=== PATIENT | male | born 1995 ===

== ENCOUNTER 2022-11-26 09:07 | Outpatient (AMB) | payer OTHER, SELFPAY ==
--- NOTE | 2022-11-26 09:34 | AM.OFFWIN_ITS ---
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 Patient Tobacco Use Status: Former Tobacco user Allergies No Known Allergies Allergy (Verified 11/26/22 09:37) Do you need a note to return to daycare/school/sports/work: No HPI HPI Comments History of Present Illness Details 1003 27 year old male presents w/ right wrist pain X 1 month s/p punching a punching a punching bag at [employer]. Pain worse w/ range of motion better at rest. States he wanted to come in because he wanted to get checked out prior to having a fit test for the [employer]. No numbness, or tingling, or arm clumsiness. Denies fevers and chills. Physical exam with full range of motion to bilateral wrists, fingers, no step- offs or deformities. 2+ radial pulses equal bilateral. No wrist drop. Capillary refill less than 2 seconds equal bilateral. Normal sensation distally History and physical exam concerning for possible sprain or strain versus ligament or tendon injury, unlikely acute in nature however. No signs of fracture, dislocation, neurovascular compromise or threat to limb there differentials include inflammatory arthritis Plan prednisone, naproxen. Advised him to follow up with the orthopedic team. Educated patient on diagnosis and treatment plan, answered all question, patient verbalizes understanding. At this time patient will be discharged home, advised to return with new or worsening symptoms. Educated on worrisome signs and symptoms and when to return. At this time I feel comfortable discharge home. [facility] Social History Patient Tobacco Use Status: Former Tobacco user Review of Systems Const Details: Constitutional : No Weight loss, No Fever, No Chills, No Fatigue, No Malaise ENT/Mouth : No sore throat, No Rhinorrhea Eyes: No Eye Pain, No Swelling, No Redness Cardiovascular : No Chest Pain, No SOB, No Dyspnea on Exertion, No Orthopnea, No Edema, No Palpitations Respiratory : No Cough, No Sputum, No Wheezing Gastrointestinal : No Nausea, No Vomiting, No Diarrhea, No Constipation, No abdominal Pain, No Hematochezia, No Melena Genitourinary : No Dysuria, No Urinary Frequency, No Hematuria, Musculoskeletal : + joint pain, No Myalgias, + Joint Swelling Skin : No Skin Lesions, No rash Neuro : No Weakness, No Numbness, No Dizziness, No Headache Psych : No Anxiety/Panic, No Depression All other systems reviewed and are negative All systems reviewed & are unremarkable except as noted in HPI and below Physical Exam Vital Signs: Last Vital Signs Temp 97.8 F 11/26/22 09:36 Pulse 82 11/26/22 09:36 BP 124/80 11/26/22 09:36 Pulse Ox 98 11/26/22 09:36 Oxygen Delivery Method Room Air 11/26/22 09:36 BMI result Body Mass Index 41.7 Vital signs stable Appearance: Alert.? Oriented X3.? No acute distress.? Head: Normocephalic, atraumatic, no step-offs or deformities Eyes: Pupils equal, round and reactive to light.? CVS: Normal heart rate and rhythm.? Pulses normal.? Respiratory: No respiratory distress.? Breath sounds normal.? Abdomen: Soft and nontender.? Skin: Skin warm and dry.? Normal skin color.? Normal skin turgor.? Extremities: No lower extremity edema.? No calf ttp. 5/5 strength to bilateral upper and lower extremities + full range of motion to bilateral wrists ( slight discomfort w/ flexion of r. wist), fingers, no step-offs or deformities. 2+ radial pulses equal bilateral. No wrist drop. Capillary refill less than 2 seconds equal bilateral. Normal sensation distally Neuro: Oriented X 3.? No motor deficit.? No sensory deficit. CN 2-12 intact Assessment & Plan Assessment & Plan (1) Wrist pain, right: Code(s): M25.531 - Pain in right wrist Plan Take your medications as prescribed. If you were prescribed antibiotics today, it is important that you take your medication to their entirety, do not skip any doses, do not finish them early. Follow-up with your primary care provider this week. Return to the emergency department with new or worsening symptoms. Such as fevers, chills, chest pain, shortness of breath, nausea, vomiting, dizziness, headache, vision changes, lethargy In case of emergency call 911 Orders: Orders XR wrist RT 2V Today M25.531 - Pain in right wrist Referrals Orthopedics Referral M25.539 - Pain in unspecified wrist Medications: New prednisone 20 mg PO DAILY 5 days 5 tabs 0RF naproxen 500 mg PO BID PRN 14 tabs 0RF pain Coding Level of Care Code Est Pt Level 3 (81136) Diagnoses Wrist pain, right M25.531
[2022-11-26 09:36] VITALS: BP 124/80; PULSE 82; TEMP 36.6; O2SAT 98; BMI 41.7
== END 2022-11-26 10:22 | disposition home or self-care (01) ==
PROVIDERS: Visit Provider Physician Assistant
DX: M25.531 Pain in right wrist (principal)
CPT/HCPCS: 99213

== ENCOUNTER 2022-11-26 10:00 | Outpatient (REF) | payer OTHER, SELFPAY ==
--- NOTE | ~2022-11-26 | XR_ITS ---
EXAMINATION: XR WRIST, RIGHT CLINICAL INFORMATION: Right wrist pain. COMPARISON: None available. TECHNIQUE: PA, lateral, scaphoid and oblique views of the right wrist. FINDINGS: The bones and soft tissues are normal. No fracture. Alignment is anatomic with normal joint spaces. No erosions or abnormal soft tissue calcifications. XR/XR wrist RT min 3V IMPRESSION: Unremarkable right wrist.
== END 2022-11-26 10:01 | disposition home or self-care (01) ==
LOC: HO.HMGCX 10:00
PROVIDERS: Visit Provider Physician Assistant
DX: M25.531 Pain in right wrist (principal)
CPT/HCPCS: 73110

== ENCOUNTER 2022-12-24 14:02 | Outpatient (AMB) | payer OTHER, SELFPAY ==
[2022-12-24 14:07] VITALS: BMI 41.7
--- NOTE | 2022-12-24 14:07 | MHC.OFFVIS ---
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 He states that his pain is on the the dorsal aspect of the wrist. He states anything over 35 lbs causes his pain to get worse. 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 The [facility]22 status post 3 weeks prior while in [employer] he was hitting a punching bag and was unable to bear weight on the right wrist. X-rays of the right wrist were obtained. He was prescribed prednisone and naproxen. While in the office today he reports his pain is on the dorsal aspect of the right wrist. He confirms he is unable to apply pressure to the wrist and lifting anything over 35 lbs cause his pain to increase. [facility] Social History Patient Tobacco Use Status: Former Tobacco user Review of Systems Const All systems reviewed & are unremarkable except as noted in HPI and below Physical Exam Vital Signs: BMI result Body Mass Index 41.7 Const General: cooperative and no acute distress Orientation/consciousness: patient oriented x3 Resp Effort & Inspection: normal respiratory effort and able to speak in complete sentences Cardio Peripheral pulses: Peripheral pulses 2+ throughout Skin General skin exam: no rashes or lesions noted Neuro General: patient oriented x3 Extrem Other: Right wrist: Normal to inspection. No ecchymosis, erythema, or edema. Able to perform full finger flexion, extension, abduction, adduction, finger cross, okay sign, and thumbs up without deficit. Able to make a closed fist. He reports pain with axial loading of the wrist at the distal radius and ulnar styloid. Sensation intact. Capillary refill is brisk. Radial pulse intact. Assessment & Plan Assessment & Plan (1) Contusion of wrist, right: Code(s): S60.211A - Contusion of right wrist, initial encounter Qualifiers: Encounter type: initial encounter Qualified Code(s): S60.211A - Contusion of right wrist, initial encounter Plan Mr. Richards is a 27-year-old right hand dominant male who presents in the office today, as a new patient, for an evaluation of right wrist pain. The [facility] 11[facility]2022 status post 3 weeks prior while in [employer] he was hitting a punching bag and was unable to bear weight on the right wrist. X-rays of the right wrist were obtained. He was prescribed prednisone and naproxen. While in the office today he reports his pain is on the dorsal aspect of the right wrist. He confirms he is unable to apply pressure to the wrist and lifting anything over 35 lbs cause his pain to increase. The patient will be referred for a CT scan. Follow up will be after the CT scan is obtained, or sooner if needed. X-rays of the right wrist, obtained on 11/26/2022, revealed: Unremarkable right wrist. Orders: Orders CT wrist RT wo IV con Today S60.211A - Contusion of right wrist, initial encounter Patient Instructions: Scribed for Gisella Bearden PA-C by Sanjana Dotson lead medical technologist, on 12/24/2022 at 2:07 pm, EST. Coding Level of Care Code New Pt Level 4 (68943) Diagnoses Contusion of right wrist, initial encounter S60.211A Encounter type: initial encounter
== END 2022-12-24 15:12 | disposition home or self-care (01) ==
PROVIDERS: PCP Nurse Practitioner Family; Visit Provider Physician Assistant
DX: S60.211A Contusion of right wrist, initial encounter (principal)
CPT/HCPCS: 99203

== ENCOUNTER → 2022-12-24 14:02 | Outpatient (BNVA) | payer OTHER, SELFPAY | PROVIDERS: PCP Nurse Practitioner Family; Visit Provider Physician Assistant ==